=== PATIENT | male | born 1955 | race Caucasian/White ===

== ENCOUNTER 2017-05-19 12:23 | Inpatient (IN) ==
--- NOTE | 2017-05-18 17:02 | History and Physical ---
CHIEF COMPLAINT Left foot multi-toe osteomyelitis. HISTORY OF PRESENT ILLNESS Andrés is a 61-year-old gentleman who started having wound issues on his left foot when he was walking on hot pavement. He developed what appears to be a traumatic ulceration to the plantar aspect of the left foot. This has been treated in the wound clinic and unfortunately his symptoms have worsened and he started developing diabetic ulcerations in the third, fourth and fifth digits. Because he was unable to get an MRI because of a pacemaker, he did have a bone scan which is suggestive of osteomyelitis in the third, fourth and fifth toes. He states that his diabetes is well controlled. He has been on oral antibiotic per Dr. Brittany Parra. He has taken Levaquin. He denies pain in the foot due to neuropathy but he does have pain starting in his mid-calf where his sensation starts. PAST MEDICAL HISTORY 1. History of pacemaker. 2. History of myocardial infarction. 3. Hepatitis C. 4. Diabetes. PAST SURGICAL HISTORY 1. He has had ulnar nerve transposition. 2. Pacemaker placement. REVIEW OF SYSTEMS Negative for recent fever or chills, chest pain, shortness of breath, nausea, vomiting, diarrhea, constipation. PHYSICAL EXAMINATION GENERAL: He is alert and oriented, in no acute distress. He is here with his . LEFT LOWER EXTREMITY: Exam of his left lower extremity shows he has open ulcerations with bone exposed to both the fifth and the third digits. There is also swelling and erythema in the third, fourth and fifth toes. There is a large open wound to the plantar aspect of the distal foot which has beautiful granulation tissue present. He has no sensation to light touch distal to the calf. He has palpable dorsalis pedis pulse and otherwise his skin is intact without lesions. RADIOGRAPHS Radiographs are reviewed. Previous plain films as well as his bone scan report which does suggest osteomyelitis in the third, fourth and fifth digits. ASSESSMENT Left third, fourth and fifth toes osteomyelitis. PLAN I reviewed the diagnosis and treatment options with him. I did recommend an amputation of the third, fourth and fifth toes. I do not think they will be able to be saved given that he has open bone exposed. I am concerned about him healing the wound given the large plantar ulcer that he has present. I discussed possible closure of his incisions at the time of surgery or if there is concern at the time of surgery, to place a wound VAC instead. We will send the toes for pathology to get margins and he will be given antibiotics per Dr. Parra. Surgery will be planned for tomorrow. LUCIA
[2017-05-19] MEDS ORDERED: LIDOCAINE 1% (10mg/ml) 2mL INJ PF SDV ID ONE (12:43)
[2017-05-19] MEDS ORDERED: LR 1,000 ML IV SCH (12:45)
[2017-05-19 12:52] VITALS: BMI 22.4
--- NOTE | 2017-05-19 14:01 | Anesthesia Preoperative Report ---
Anesthesia Preoperative Record - Date and Time Date: 05/19/17 Preoperative Diagnosis: Amputation 3rd, 4th & 5th Toes infected toes Proposed Procedure: amputation of toes NPO Since Date: 05/18/17 NPO Since Time: 23:00 Allergies/Adverse Reactions: Allergies Allergy/AdvReac Type Severity Reaction Status Date / Time naproxen Allergy Mild RASH Verified 05/12/17 13:28 hydrocodone [From Lortab] AdvReac Severe Vomiting Verified 05/12/17 13:28 - Vital Signs Vital Signs: Temperature 98.8 F 05/19/17 12:51 Pulse Rate 101 H 05/19/17 12:51 Respiratory Rate 20 05/19/17 12:51 Blood Pressure 118/78 05/19/17 12:51 Pulse Oximetry 96 05/19/17 12:51 Height and Weight: Height 1.88 m Weight 79.4 kg Body Mass Index 22.4 - Medications Inpatient Medications: Current Medications Lactated Ringer's (Lactated Ringers) 1,000 mls @ 50 mls/hr IV .Q20H [facility] Home Medications: Home Medications Medication Instructions Recorded Confirmed Type ALPRAZolam [Alprazolam] 0.5 mg PO TID #0 07/16/15 05/19/17 History Buspirone HCl 15 mg PO BID #0 07/16/15 05/19/17 History Furosemide 40 mg PO DAILY #0 07/16/15 05/19/17 History Omeprazole 20 mg PO DAILY #0 07/16/15 05/19/17 History Potassium Chloride 10 meq PO HS #0 07/16/15 05/19/17 History Ramipril 5 mg PO HS #0 07/16/15 05/19/17 History Aspirin [Aspir 81] 81 mg PO DAILY #0 tab 07/17/15 05/19/17 History Eplerenone 25 mg PO HS #0 07/17/15 05/19/17 History Nitroglycerin 0.4 mg SL Q5M PRN #0 tab 07/17/15 05/19/17 History Tamsulosin HCl 0.4 mg PO HS #0 08/02/16 05/19/17 History Tramadol HCl 100 mg PO BID #0 08/02/16 05/19/17 History Digoxin 125 mcg PO DAILY 04/21/17 05/19/17 History Cholecalciferol (Vitamin D3) 1 cap PO DAILY 05/12/17 05/19/17 History [Vitamin D3] Gabapentin 300 mg PO TID 05/12/17 05/19/17 History levoFLOXacin [Levofloxacin] 750 mg PO DAILY 05/12/17 05/19/17 History Oxycodone HCl/Acetaminophen 2 tab PO TID PRN 05/19/17 05/19/17 History [Percocet 5-325 mg Tablet] - Medical History Cardiovascular: Reports: Arrhythmia (pacemaker ), Myocardial Infarction (1999, 1 stent , 25% EF, sees cardioligist every 2 yrs, Seen in November 2015, ), Other Gastrointestional: Reports: Hepatitis (C, treated for it ) Renal/Endocrine: Reports: Diabetes Mellitus Type 2 (bs at home 120's ) - Surgical History Cardiac Surgeries/Treatments: Reports: Cardiac Catheterization (STENT X 1), Internal Defibrillator, Pacemaker (2015, 3 leads ) GI Surgery/Treatments: Reports: Appendectomy Musculoskeletal Surgery/Tx: Reports: Other (laminectomy L5) Anesthesia Reactions: None Hx Family Anesthesia Reaction: No - Social History Smoking Status: Former smoker - Pertinent Findings Laboratory: CBC and BMP 05/19/17 13:05 05/19/17 13:05 BMP 05/19/17 13:05 Sodium 141 Potassium 4.9 Chloride 101 Carbon Dioxide 28 BUN 23.0 H Creatinine 1.2 Glucose 137 H Calcium 10.0 Liver Function 05/19/17 Range/Units 13:05 Total Bilirubin 1.10 (0.20-1.30) MG/DL AST 22 (17-59) U/L ALT 30 (21-72) U/L Alkaline Phosphatase 94 (38-126) U/L Albumin 4.6 (3.5-5.0) G/DL - Physical Exam Respiratory Exam: Present: lungs clear, bilateral breath sounds equal Cardiovascular Exam: Present: regular rate and rhythm, no murmur - Airway Assessment Mallampati Score: I TMD: 3 Fingerbreadths Neck Extension: good Teeth: upper dentures, lower dentures Overall Assessment: no airway concerns - ASA ASA Score: 3 - Plan Anesthesia: General TIVA, MAC Peripheral Nerve Block: Popliteal-Left - Discussion Discussion: Discussed risks/options/alternatives of anesthesia and questions answered. Patient consents. Nursing pain assessment noted. Attestation Statement: Prior to the delivery of any anesthetic medication, I examined the patient, developed the plan, obtained the patient's consent and discussed the risk and benefits of the procedure with the patient/guardian.
[2017-05-19] MEDS ORDERED: MIDAZOLAM 2mg/2ml INJECTION IVP ONE (14:07)
[2017-05-19] MEDS ORDERED: ROPIVACAINE 0.5% (5mg/ml) 30ml INJ ONE (14:25)
[2017-05-19] MEDS ORDERED: MIDAZOLAM 2mg/2ml INJECTION ONE ×2 (14:52→15:07)
[2017-05-19] MEDS ORDERED: FentaNYL 100 MCG/2 ML INJECTION ONE (14:54)
[2017-05-19] MEDS ORDERED: KETAMINE 500 MG/10 ML INJECTION ONE (14:55)
[2017-05-19] MEDS ORDERED: PROPOFOL 20 ML ONE (14:55)
[2017-05-19] MEDS ORDERED: LIDOCAINE 2% (100mg/5mL) PF 5ml vl ONE (14:55)
--- NOTE | 2017-05-19 15:00 | Anesthesia Procedure Note ---
Peripheral Nerve Blockade - Procedure Physician: Jaron Carballo MD Date: 05/19/17 Surgical Procedure: amputation toes left foot Discussion: Discussed risks/options/alternatives of anesthesia and questions answered. Patient consents. Nursing pain assessment noted. Block Start: 14:31 Block Stop: 14:34 Blocked Employed: [employer] Indication: Post-Operative Pain Approach: Left Side Confirmed Position: Supine Patient: Consent, Risks/Benefits Discussed, Informed, Post Block Act. Discussed IV Sedation: Yes Midazolam (mg): 2 Initial Vital Signs: Temperature 98.8 F 05/19/17 12:51 Temperature Source Oral 05/19/17 12:51 Pulse Rate 101 H 05/19/17 12:51 Respiratory Rate 20 05/19/17 12:51 Blood Pressure 118/78 05/19/17 12:51 Blood Pressure Mean 91 05/19/17 12:51 Blood Pressure Position Sitting 05/19/17 12:51 Pulse Oximetry 96 05/19/17 12:51 Oxygen Delivery Method 05/19/17 12:51 Post Vital Signs: Temperature 98.8 F 05/19/17 12:51 Pulse Rate 92 05/19/17 14:40 Respiratory Rate 13 05/19/17 14:40 Blood Pressure 115/74 05/19/17 14:40 Pulse Oximetry 97 05/19/17 14:40 Initial Pain Pain Score: 0 Post Block Pain Score: 0 Prep: Chlorhexadine/ETOH Ultrasound Used?: Yes - Injectate Ropivacaine (%): 0.5 Ropivacaine (mL): 20 Was Epi 1:200,000 Used?: No Injection: Injection made incrementally with constant monitoring and aspiration every ml
[2017-05-19] MEDS ORDERED: SENNA + DOCUSATE TABLET PO PRN (16:49)
[2017-05-19] MEDS ORDERED: ONDANSETRON 4 MG/2 ML INJECTION IVP PRN (16:49)
[2017-05-19] MEDS ORDERED: NITROGLYCERIN 0.4 MG SUBLINGUAL TABLET SL PRN (16:49)
--- NOTE | 2017-05-19 16:51 | Anesthesia Postoperative Note ---
- Date and Time Date: 05/19/17 Time: 16:18 - Status Patient Participated in Evaluation: Patient Participated in Person Vital Signs: Temperature 97.2 F 05/19/17 15:43 Pulse Rate 96 05/19/17 16:40 Respiratory Rate 12 05/19/17 16:40 Blood Pressure 110/62 05/19/17 16:40 Pulse Oximetry 97 05/19/17 16:40 Respiratory Function: Airway Patent Cardiovascular Function: Regular Pulse EKG Rhythm: Normal Sinus Rhythm (PACED) Mental Status: Alert and Oriented Pain Intensity: 2 Hydration: IV Infusing Complications During Recover: None Apparent - Follow-Up Instructions Instructions: Per Surgeon
[2017-05-19] MEDS: NS 1,000 ML IV SCH (17:41)
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
--- NOTE | 2017-05-19 18:41 | Pharmacy Consult-Antibiotics ---
Pharmacy Consult-Vancomycin - Laboratory Information WBC 6.2 T/MM3 (4.5-11.0) 05/19/17 13:05 BUN 23.0 MG/DL (9-20) H 05/19/17 13:05 Creatinine 1.2 MG/DL (0.8-1.5) 05/19/17 13:05 - Consult Information VANCOMYCIN CONSULT: Dx: WOUND INFECTION Current Renal Fx: SCr = 1.2mg/dl. Will give Vancomycin 1,000mg IV q12hrs after a loading dose of 2 gram ivpb. Will continue to monitor and adjust regimen to maintain therapeutic levels. Thank you.
[2017-05-19] MEDS ORDERED: BISACODYL 10 MG SUPPOSITORY RECTALLY PRN (19:07)
[2017-05-19] MEDS: PIPERACILLIN/TAZOBACTAM 3.375 GM in NS 100 ML IV SCH (20:16)
[2017-05-19] MEDS: TAMSULOSIN 0.4 MG CAPSULE PO SCH (21:43)
[2017-05-19] MEDS: BUSPIRONE 15 MG TABLET PO SCH (21:43)
[2017-05-19] MEDS: RAMIPRIL 5 MG CAPSULE PO SCH (21:43)
[2017-05-19] MEDS: EPLERENONE 25 MG TABLET PO SCH (21:43)
[2017-05-19] MEDS: GABAPENTIN 300 MG CAPSULE PO SCH (21:44)
[2017-05-19] MEDS: ALPRAZolam 0.5 MG TABLET PO SCH (21:44)
[2017-05-19] MEDS: SENNA + DOCUSATE TABLET PO SCH (21:44)
[2017-05-20] MEDS: PIPERACILLIN/TAZOBACTAM 3.375 GM in NS 100 ML IV SCH ×4 (02:22→21:52)
[2017-05-20] MEDS: OXYCODONE/APAP 7.5 MG/325 MG TABLET PO PRN ×4 (02:26→18:02)
[2017-05-20] MEDS: OMEPRAZOLE 20 MG CAPSULE PO SCH (05:47)
[2017-05-20] MEDS: NS 1,000 ML IV SCH ×3 (06:51→15:33)
[2017-05-20] MEDS: ALPRAZolam 0.5 MG TABLET PO SCH ×3 (08:55→21:51)
[2017-05-20] MEDS: ASPIRIN *EC* 81 MG TABLET PO SCH (08:55)
[2017-05-20] MEDS: DIGOXIN 125 MCG TABLET PO SCH (08:55)
[2017-05-20] MEDS: SENNA + DOCUSATE TABLET PO SCH ×2 (08:56→21:50)
[2017-05-20] MEDS: BUSPIRONE 15 MG TABLET PO SCH ×2 (08:56→21:49)
[2017-05-20] MEDS: GABAPENTIN 300 MG CAPSULE PO SCH ×3 (08:56→21:50)
[2017-05-20] MEDS: POLYETHYL GLYCOL 3350 17gm PACKET PO SCH (08:57)
[2017-05-20] MEDS: FUROSEMIDE 40 MG TABLET PO SCH (08:57)
--- NOTE | 2017-05-20 13:07 | Progress Note ---
Subjective: F/U: Ischemic cardiomyopathy, Type II DM Doing well today. No f/c. Not having pain/discomfort to amputation site (IV site in his left wrist bothering him more). Breathing well-not feeling SOA or congested. No cough. No chest pressure or pain. Not lightheaded or dizzy with positional changes or when up. Denies ab pain, nausea, or bloating. Passing flatus and stool. Urinating well. Sugars showing good control. Objective Vital signs: Temperature 98.5 F 05/20/17 12:00 Pulse Rate 80 05/20/17 12:00 Respiratory Rate 18 05/20/17 12:00 Blood Pressure 107/66 05/20/17 12:00 Pulse Oximetry 98 05/20/17 12:00 Rhythm: Normal Sinus Rhythm (PACED) Height/Weight/BMI: Height 1.88 m Weight 80.6 kg Body Mass Index 22.4 - Constitutional Present: well nourished, well developed, cooperative - Routine HEENT Exam Head: Present: normocephalic, atraumatic Eye: Present: EOMI, PERRL ENT: Present: mucous membranes moist - Routine Respiratory Exam Present: CTA bilaterally. Absent: respiratory distress, rhonchi, wheezes, crackles - Routine Cardiovascular Exam Present: RRR, no murmur - Routine Abdominal Exam Present: soft, normoactive bowel sounds, non distended, non tender. Absent: rebound, guarding - Routine Extremities Exam Present: no edema, pulses intact. Absent: cyanosis, clubbing Comments: SCD in place on LE - Routine Musculoskeletal Exam Musculoskeletal: Present: no clubbing or cyanosis, normal strength - Routine Skin Exam Present: warm, normal turgor, wounds (Left foot wound wrapped and dry) - Routine Neurological Exam Present: alert, oriented X3, CN II-XII intact, vision grossly intact, hearing grossly intact. Absent: motor deficit - Routine Psychiatric Exam Present: normal affect, normal thought process, cooperative, good insight, good judgment. Absent: anxious, agitated Results - Labs CBC & Chem 7: 05/20/17 04:16 05/20/17 04:16 Microbiology Results: Microbiology 05/19/17 15:30 Amputation Site Gram Stain - Final 05/19/17 15:30 Amputation Site Surgical Culture - Preliminary Early growth Assessment and Plan (1) Osteomyelitis of left foot Current visit: Yes Status: Acute DVT Prophylaxis: SCD's GI Prophylaxis: Protonix Assessment and Plan: Assessment Osteomyelitis left foot 05/19/17: amputation of left 3rd, 4th, and 5th toes by Dr. Kait PIERCE, h/o [place] in 1999 Ischemic cardiomyopathy, EF 25% - used to be on Coumadin from 4761-0076. +AICD. 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 Wound culture and pathology pending. Will decrease IVF to 40cc/hr to help keep vein open but not overload patient. Restart his home tramadol 100mg BID - takes to help pain in his hands -- NOT on home med list. Monitor sugars - currently showing good control. Continue CV medications. BP stable. No acute CV problems. Continue post operative care and support. Clinically recovering well. Time spent with patient care 25 minutes. Sepsis Assessment - Evaluation Sepsis screening result: No Definite Risk Hospital Course Summary Disclaimer: The visit summary below is not to be considered part of the above Progress Note. Hospital Course: 05/19/17: Hospitalist consult Assessment Osteomyelitis left foot; s/p left 3rd, 4th, and 5th toes amputation on 05/19/[address] Kait PIERCE, h/o [place] in 1999 Ischemic cardiomyopathy, EF 25% - used to be on Coumadin from 3705-0971. +AICD. 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 Give IV Ativan now - concern that he is having benzo withdrawal with diaphoresis and tremors. Postop care per Dr. Carballo. Discussed with Derian - he will order PT/OT consults. Monitor blood sugars; continue DM meds. Watch for fluid overload - he denies ever having CHF exacerbation in the past. 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 DC IVF as soon as he is taking in oral well. He is on digoxin but denies hx of an arrhythmia. Consult CM - he is interested in naming his as DPOA and writing a living will. Code: Full code but he does not want to be on ventilator for prolonged period. Also, he lives in a 5th wheel with his , and his is planning on having a knee replacement on 05/24/17, so we will have to determine best discharge plans. 05/20/17 Continue Vancomycin and Zosyn as per ID recommendations. Wound culture and pathology pending. Will decrease IVF to 40cc/hr to help keep vein open but not overload patient. Restart his home tramadol 100mg BID - takes to help pain in his hands -- NOT on home med list. Monitor sugars - currently showing good control. Continue CV medications. BP stable. No acute CV problems. Continue post operative care and support. Clinically recovering well.
--- NOTE | 2017-05-20 13:31 | Orthopedic Progress Note ---
Date: Subjective/Severity of Illness: Andrés is doing great. Pain in the foot is controlled. He is complaining of pain in the IV site when he gets Vanco / Zosyn. They are going to change the rate and see if that lessens his pain. May need to change the IV site. No other concerns. Wound team changed dressing to the foot this AM. Orthopedic Objective PO Vital signs: Temperature 98.5 F 05/20/17 12:00 Pulse Rate 80 05/20/17 12:00 Respiratory Rate 18 05/20/17 12:00 Blood Pressure 107/66 05/20/17 12:00 Pulse Oximetry 98 05/20/17 12:00 Height and Weight: Height 6 ft 2 in Weight 177 lb 11.081 oz Body Mass Index 22.4 - Constitutional General Appearance: Present: alert, no acute distress, other (Sitting up eating lunch.) - Respiratory Exam Present: non-labored - Surgical Site Incision: dressing intact, no drainage (Changed by Wound Team this AM.) - Integumentary Exam Present: pink, warm, dry - Neurological Exam Present: no deficits - Psychiatric Exam Present: alert, normal affect - Labs Result Diagrams: 05/20/17 04:16 05/20/17 04:16 Abnormal lab results 05/20/17 Range/Units 04:16 RBC 4.28 L (4.50-5.90) M/MM3 Hgb 12.6 L (13.5-17.5) GM/DL Hct 37.3 L (41-53) % Neut % (Auto) 71.2 H (33-66) % Lymph % (Auto) 19.7 L (23-45) % H & H 05/19/17 05/20/17 Range/Units 13:05 04:16 Hgb 13.9 12.6 L (13.5-17.5) GM/DL Hct 40.8 L 37.3 L (41-53) % Orthopedic Assessment and Plan (1) Osteomyelitis of left foot Status: Acute Assessment and Plan: Cont wound checks by the wound team. Elevate the leg to control swelling. Continue IV Vanco and Zosyn per Dr Parra recommendations. Change IV site if needed. It is at the radial bend of his wrist and is uncomfortable for him. Await culture reports and path report before determining if he needs IV or PO antibiotics. - Anticoagulation Therapy Anticoagulation: Resume home anticoagulant (Aspirin 81mg daily.) Hospital Course Summary Disclaimer: The visit summary below is not to be considered part of the above Progress Note. Hospital Course: 05/19/17: Hospitalist consult Assessment Osteomyelitis left foot; s/p left 3rd, 4th, and 5th toes amputation on 05/19/[address] Carballo CAD, h/o [place] in 1999 Ischemic cardiomyopathy, EF 25% - used to be on Coumadin from [id number]. +AICD. 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 Give IV Ativan now - concern that he is having benzo withdrawal with diaphoresis and tremors. Postop care per Dr. Carballo. Discussed with Derian - he will order PT/OT consults. Monitor blood sugars; continue DM meds. Watch for fluid overload - he denies ever having CHF exacerbation in the past. His roller leveler is at [facility]. DC IVF as soon as he is taking in oral well. He is on digoxin but denies hx of an arrhythmia. Consult CM - he is interested in naming his as DPOA and writing a living will. Code: Full code but he does not want to be on ventilator for prolonged period. Also, he lives in a 5th wheel with his , and his is planning on having a knee replacement on 05/24/17, so we will have to determine best discharge plans. 05/20/17 Continue Vancomycin and Zosyn as per ID recommendations. Wound culture and pathology pending. Will decrease IVF to 40cc/hr to help keep vein open but not overload patient. Restart his home tramadol 100mg BID - takes to help pain in his hands -- NOT on home med list. Monitor sugars - currently showing good control. Continue CV medications. BP stable. No acute CV problems. Continue post operative care and support. Clinically recovering well.
[2017-05-20] MEDS ORDERED: DiphenhydrAMINE 50 MG/ML INJECTION IVP PRN (19:16)
[2017-05-20] MEDS: RAMIPRIL 5 MG CAPSULE PO SCH (21:48)
[2017-05-20] MEDS: TAMSULOSIN 0.4 MG CAPSULE PO SCH (21:49)
[2017-05-20] MEDS: EPLERENONE 25 MG TABLET PO SCH (21:50)
[2017-05-20] MEDS: TRAMADOL 50 MG TABLET PO SCH (21:51)
[2017-05-21] MEDS: PIPERACILLIN/TAZOBACTAM 3.375 GM in NS 100 ML IV SCH ×4 (03:17→21:17)
[2017-05-21] MEDS: OXYCODONE/APAP 7.5 MG/325 MG TABLET PO PRN ×5 (04:20→21:09)
[2017-05-21] MEDS: OMEPRAZOLE 20 MG CAPSULE PO SCH (05:30)
--- NOTE | 2017-05-21 08:39 | Pharmacy Consult-Antibiotics ---
Pharmacy Consult-Vancomycin - Laboratory Information WBC 8.1 T/MM3 (4.5-11.0) 05/21/17 04:32 BUN 16.0 MG/DL (9-20) 05/21/17 04:32 Creatinine 1.0 MG/DL (0.8-1.5) 05/21/17 04:32 Vancomycin Trough 12.61 UG/ML (15-20) L 05/21/17 08:06 DAY 3 OF VANCOMYCIN THERAPY: Trough = 12.61 mcg/ml (Target range = 15 - 20) Renal fx is stable. Will increase regimen to Vancomycin 1500mg IV q12hrs. This gives calculated peak/trough of 46/17 mcg/ml respectively. Thank you
[2017-05-21] MEDS: DIGOXIN 125 MCG TABLET PO SCH (08:55)
[2017-05-21] MEDS: FUROSEMIDE 40 MG TABLET PO SCH (08:56)
[2017-05-21] MEDS: TRAMADOL 50 MG TABLET PO SCH ×2 (08:56→21:08)
[2017-05-21] MEDS: ASPIRIN *EC* 81 MG TABLET PO SCH (08:56)
[2017-05-21] MEDS: BUSPIRONE 15 MG TABLET PO SCH ×2 (08:56→21:08)
[2017-05-21] MEDS: ALPRAZolam 0.5 MG TABLET PO SCH ×3 (08:57→22:05)
[2017-05-21] MEDS: GABAPENTIN 300 MG CAPSULE PO SCH ×3 (08:57→21:08)
[2017-05-21] MEDS: POLYETHYL GLYCOL 3350 17gm PACKET PO SCH (08:58)
--- NOTE | 2017-05-21 09:19 | Orthopedic Progress Note ---
Date: Subjective/Severity of Illness: Andrés is doing well. Pain levels are markedly improved. The dressing came off overnight and nursing reapplied it this AM. He has remained afebrile. WBC 8.1 Orthopedic Objective PO Vital signs: Temperature 96.0 F L 05/21/17 07:52 Pulse Rate 74 05/21/17 08:55 Respiratory Rate 16 05/21/17 07:52 Blood Pressure 104/66 05/21/17 07:52 Pulse Oximetry 97 05/21/17 07:52 Height and Weight: Height 6 ft 2 in Weight 177 lb 4.026 oz Body Mass Index 22.4 - Constitutional General Appearance: Present: alert, no acute distress - Respiratory Exam Present: non-labored - Cardiovascular Exam Capillary Refill: < 2-3 Seconds - Extremities Exam Extremities: Absent: calf tenderness - Surgical Site Incision: dressing intact, no drainage, other (New dressing applied by nursing this AM) - Integumentary Exam Present: pink, warm, dry - Neurological Exam Present: no deficits - Psychiatric Exam Present: alert, normal affect - Labs Result Diagrams: 05/21/17 04:32 05/21/17 04:32 Abnormal lab results 05/21/17 05/21/17 05/21/17 Range/Units 04:32 04:32 08:06 RBC 4.15 L (4.50-5.90) M/MM3 Hgb 12.4 L (13.5-17.5) GM/DL Hct 36.4 L (41-53) % Chloride 108 H (98-107) MEQ/L Vancomycin Trough 12.61 L (15-20) UG/ML H & H 05/19/17 05/20/17 05/21/17 Range/Units 13:05 04:16 04:32 Hgb 13.9 12.6 L 12.4 L (13.5-17.5) GM/DL Hct 40.8 L 37.3 L 36.4 L (41-53) % Orthopedic Assessment and Plan (1) Osteomyelitis of left foot Status: Acute Assessment and Plan: New dressing applied this AM by nursing. I will check it tomorrow. Elevate the leg to control swelling. Continue IV Vanco and Zosyn per Dr Parra recommendations. Sensitivity reports still pending. Pt reports decreased pain and is afeb. Cont to monitor. - Anticoagulation Therapy Anticoagulation: Resume home anticoagulant (Aspirin 81mg daily.) Hospital Course Summary Disclaimer: The visit summary below is not to be considered part of the above Progress Note. Hospital Course: 05/19/17: Hospitalist consult Assessment Osteomyelitis left foot; s/p left 3rd, 4th, and 5th toes amputation on 05/19/[address] Carballo CAD, h/o [place] in 1999 Ischemic cardiomyopathy, EF 25% - used to be on Coumadin from 9539-2012. +AICD. 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 Give IV Ativan now - concern that he is having benzo withdrawal with diaphoresis and tremors. Postop care per Dr. Carballo. Discussed with Derian - he will order PT/OT consults. Monitor blood sugars; continue DM meds. Watch for fluid overload - he denies ever having CHF exacerbation in the past. 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 DC IVF as soon as he is taking in oral well. He is on digoxin but denies hx of an arrhythmia. Consult CM - he is interested in naming his as DPOA and writing a living will. Code: Full code but he does not want to be on ventilator for prolonged period. Also, he lives in a 5th wheel with his , and his is planning on having a knee replacement on 05/24/17, so we will have to determine best discharge plans. 05/20/17 Continue Vancomycin and Zosyn as per ID recommendations. Wound culture and pathology pending. Will decrease IVF to 40cc/hr to help keep vein open but not overload patient. Restart his home tramadol 100mg BID - takes to help pain in his hands -- NOT on home med list. Monitor sugars - currently showing good control. Continue CV medications. BP stable. No acute CV problems. Continue post operative care and support. Clinically recovering well.
[2017-05-21] MEDS: SENNA + DOCUSATE TABLET PO SCH ×2 (09:47→21:08)
--- NOTE | 2017-05-21 10:50 | Progress Note ---
<Ansley Kumar V - Last Filed: 05/21/17 10:45> Subjective: Andrés is seen today in follow up. He is comfortably resting in bed without complaints. Left Foot dressing was changed this morning by nursing staff. He reports that overall the pain in his leg continues to improve. He does not have pain or much sensation in his foot from neuropathy. Patient remains afebrile, vital signs normal, noted to be mildly hypotensive this morning, however, in reviewing past trend. She tends to run in the 90 systolic at times. Objective Vital signs: Temperature 96.0 F L 05/21/17 07:52 Pulse Rate 74 05/21/17 08:55 Respiratory Rate 16 05/21/17 07:52 Blood Pressure 104/66 05/21/17 07:52 Pulse Oximetry 97 05/21/17 07:52 Height/Weight/BMI: Height 1.88 m Weight 80.4 kg Body Mass Index 22.4 - Constitutional Present: no acute distress, well nourished, well developed - Routine HEENT Exam Eye: Present: EOMI ENT: Present: mucous membranes moist, dentition normal - Routine Respiratory Exam Present: CTA bilaterally. Absent: wheezes - Routine Cardiovascular Exam Present: RRR, S1, S2. Absent: murmur - Routine Abdominal Exam Present: soft, normoactive bowel sounds, non distended. Absent: tenderness - Routine Extremities Exam Present: pulses intact, normal capillary refill Comments: Left foot dressing intact - Routine Back/Spine/Pelvis Exam Back/Spine: Present: full ROM - Routine Skin Exam Present: intact, dry, warm - Routine Neurological Exam Present: alert, oriented X3, moving all extremities, vision grossly intact, hearing grossly intact - Routine Lymphatic Exam Lymphatic: Absent: adenopathy - Routine Psychiatric Exam Present: normal affect, normal thought process Results - Labs CBC & Chem 7: 05/21/17 04:32 05/21/17 04:32 Microbiology Results: Microbiology 05/19/17 15:30 Amputation Site Gram Stain - Final 05/19/17 15:30 Amputation Site Surgical Culture - Preliminary Coag negative Staphylococcus Corynebacterium species Assessment and Plan (1) Osteomyelitis of left foot Current visit: Yes Status: Acute Assessment and Plan: Assessment Osteomyelitis left foot - 05/19/17: amputation of left 3rd, 4th, and 5th toes by Dr. Carballo CAD, h/o [place] in 1999 Ischemic cardiomyopathy, EF 25% - used to be on Coumadin from 8289-9666. +AICD. 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 Wound cultures and sensitivity pending. Continue to monitor blood sugars, overall, they have been well controlled, fasting sugar this morning 94 Percocet and Ultram as needed for pain control Senna plus, MiraLAX scheduled as well as as needed, milk of magnesia and Dulcolax for chronic constipation Morning labs reviewed, all stable Sepsis Assessment - Evaluation Sepsis screening result: No Definite Risk Hospital Course Summary Disclaimer: The visit summary below is not to be considered part of the above Progress Note. Hospital Course: 05/19/17: Hospitalist consult Assessment Osteomyelitis left foot; s/p left 3rd, 4th, and 5th toes amputation on 05/19/[address] Carballo CAD, h/o [place] in 1999 Ischemic cardiomyopathy, EF 25% - used to be on Coumadin from 9352-8666. +AICD. 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 Give IV Ativan now - concern that he is having benzo withdrawal with diaphoresis and tremors. Postop care per Dr. Carballo. Discussed with Derian - he will order PT/OT consults. Monitor blood sugars; continue DM meds. Watch for fluid overload - he denies ever having CHF exacerbation in the past. His pig sticker is at [facility]. DC IVF as soon as he is taking in oral well. He is on digoxin but denies hx of an arrhythmia. Consult CM - he is interested in naming his as DPOA and writing a living will. Code: Full code but he does not want to be on ventilator for prolonged period. Also, he lives in a 5th wheel with his , and his is planning on having a knee replacement on 05/24/17, so we will have to determine best discharge plans. 05/20/17 Continue Vancomycin and Zosyn as per ID recommendations. Wound culture and pathology pending. Will decrease IVF to 40cc/hr to help keep vein open but not overload patient. Restart his home tramadol 100mg BID - takes to help pain in his hands -- NOT on home med list. Monitor sugars - currently showing good control. Continue CV medications. BP stable. No acute CV problems. Continue post operative care and support. Clinically recovering well. 05/21/17- Stable doing well. Continue on current treatment plan. Awaiting wound culture and sensitivity results. <Tejal Wells - Last Filed: 05/21/17 16:49> Objective Vital signs: Temperature 96.2 F L 05/21/17 15:59 Pulse Rate 75 05/21/17 15:59 Respiratory Rate 16 05/21/17 15:59 Blood Pressure 105/68 05/21/17 15:59 Pulse Oximetry 97 05/21/17 15:59 Height/Weight/BMI: Height 1.88 m Weight 80.4 kg Body Mass Index 22.4 Results - Labs CBC & Chem 7: 05/21/17 04:32 05/21/17 04:32 Microbiology Results: Microbiology 05/19/17 15:30 Amputation Site Gram Stain - Final 05/19/17 15:30 Amputation Site Surgical Culture - Preliminary Coag negative Staphylococcus Corynebacterium species Assessment and Plan (1) Osteomyelitis of left foot Current visit: Yes Status: Acute Assessment and Plan: I have independently evaluated and examined this patient. I reviewed the chart, the patient's history, and the CIND[employer] PIT WORKER/PA's documented findings as above. We discussed and formulated the assessment and plan as above with additions as below: Mr. Schofield reports having no concerns today other than minor discomfort in his foot. Pathology is pending. Patient is alert and cooperative; respirations are nonlabored with good airflow and clear breath sounds. No peripheral edema is noted although there are several small scabs along the right brownlee. Vancomycin trough 12.61-dose modified per pharmacy Continue current regimen with vancomycin/Zosyn pending pathology to determine if surgical margins free of infection. Excellent control of diabetes, glucoses have ranged 97-169 in the past 24 hours. Hospital Course Summary Disclaimer: The visit summary below is not to be considered part of the above Progress Note.
[2017-05-21] MEDS: NS 1,000 ML IV SCH (18:26)
[2017-05-21] MEDS: TAMSULOSIN 0.4 MG CAPSULE PO SCH (21:08)
[2017-05-21] MEDS: EPLERENONE 25 MG TABLET PO SCH (21:08)
[2017-05-21] MEDS: RAMIPRIL 5 MG CAPSULE PO SCH (22:09)
[2017-05-22] MEDS: OXYCODONE/APAP 7.5 MG/325 MG TABLET PO PRN ×3 (03:21→17:24)
[2017-05-22] MEDS: PIPERACILLIN/TAZOBACTAM 3.375 GM in NS 100 ML IV SCH ×4 (03:26→21:47)
[2017-05-22] MEDS: OMEPRAZOLE 20 MG CAPSULE PO SCH (06:16)
[2017-05-22] MEDS: BUSPIRONE 15 MG TABLET PO SCH ×2 (08:55→21:47)
[2017-05-22] MEDS: DIGOXIN 125 MCG TABLET PO SCH (08:55)
[2017-05-22] MEDS: ASPIRIN *EC* 81 MG TABLET PO SCH (08:55)
[2017-05-22] MEDS: FUROSEMIDE 40 MG TABLET PO SCH (08:56)
[2017-05-22] MEDS: SENNA + DOCUSATE TABLET PO SCH ×2 (08:57→21:47)
[2017-05-22] MEDS: GABAPENTIN 300 MG CAPSULE PO SCH ×3 (08:57→21:47)
[2017-05-22] MEDS: ALPRAZolam 0.5 MG TABLET PO SCH ×3 (09:02→21:46)
[2017-05-22] MEDS: TRAMADOL 50 MG TABLET PO SCH ×2 (09:08→21:46)
[2017-05-22] MEDS: POLYETHYL GLYCOL 3350 17gm PACKET PO SCH (09:09)
--- NOTE | 2017-05-22 10:39 | Progress Note ---
<Lorena Borden - Last Filed: 05/22/17 10:36> Subjective: Mr. Schofield is seen today in follow up. He reports that he is feeling fairly well. Is having quite a lot of pain in IV site with Vanco infusion. He is taking pain medications prior to infusion. Is not having any redness or warmth. No pain in foot. No other acute concerns today. His is scheduled to have elective surgery early next week at this hospital as well. Objective Vital signs: Temperature 97.1 F 05/22/17 03:34 Pulse Rate 90 05/22/17 08:55 Respiratory Rate 16 05/22/17 03:34 Blood Pressure 101/67 05/22/17 03:34 Pulse Oximetry 95 05/22/17 03:34 Rhythm: Normal Sinus Rhythm (PACED) Height/Weight/BMI: Height 1.88 m Weight 81.5 kg Body Mass Index 22.4 - Constitutional Present: no acute distress, well nourished, well developed, cooperative - Routine HEENT Exam Head: Present: normocephalic, atraumatic Eye: Present: EOMI, PERRL, normal accommodation ENT: Present: mucous membranes moist - Routine Respiratory Exam Present: CTA bilaterally. Absent: rhonchi, wheezes, crackles - Routine Cardiovascular Exam Present: RRR, S1, S2 - Routine Abdominal Exam Present: soft, normoactive bowel sounds, non distended, non tender - Routine Extremities Exam Present: no edema, non tender Comments: Left foot with dressing in place. - Routine Back/Spine/Pelvis Exam Back/Spine: Present: full ROM - Routine Musculoskeletal Exam Musculoskeletal: Present: no clubbing or cyanosis, moving extremities well - Routine Skin Exam Present: intact, dry, warm - Routine Neurological Exam Present: alert, oriented X3 - Routine Psychiatric Exam Present: normal affect, cooperative, good insight, good judgment - Additional findings Additional findings: IV site left wrist- 18g. Site is intact, not warm or red. Results - Labs CBC & Chem 7: 05/21/17 04:32 05/21/17 04:32 Microbiology Results: Microbiology 05/19/17 15:30 Amputation Site Gram Stain - Final 05/19/17 15:30 Amputation Site Surgical Culture - Final Coag negative Staphylococcus Corynebacterium species Assessment and Plan (1) Osteomyelitis of left foot Current visit: Yes Status: Acute DVT Prophylaxis: SCD's GI Prophylaxis: other (PPI) Resuscitation Status: Full Code Assessment and Plan: Assessment Osteomyelitis left foot; s/p left 3rd, 4th, and 5th toes amputation on 05/19/[address] Carballo *04/22/17 cx- Enterobacter *05/19/17 cx- Corynebacterium/Coag neg. Staph. *Pathology pending. CAD, h/o [place] in 1999 Ischemic cardiomyopathy, EF 25% - used to be on Coumadin from 9106-5816. +AICD. 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 Continue antibiotics- pathology pending. Dr. Parra to help determine adjunct faculty for medical terminology antibiotic need. Change IV site out given pain with infusion. He may need Midline or PICC, but prefers to wait until adjunct faculty for medical terminology plan of care is determined. Continue supportive medications for ischemic CM/HF. His CV doc is at [facility]. BG is well controlled, A1c 5.5. Not requiring medications for BG control. Continue remainder of supportive meds. Follow labs closely. Sepsis Assessment - Evaluation Sepsis screening result: No Definite Risk Hospital Course Summary Disclaimer: The visit summary below is not to be considered part of the above Progress Note. Hospital Course: 05/19/17: Hospitalist consult Assessment Osteomyelitis left foot; s/p left 3rd, 4th, and 5th toes amputation on 05/19/[address] Carballo CAD, h/o [place] in 1999 Ischemic cardiomyopathy, EF 25% - used to be on Coumadin from 8050-6161. +AICD. 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 Give IV Ativan now - concern that he is having benzo withdrawal with diaphoresis and tremors. Postop care per Dr. Carballo. Discussed with Derian - he will order PT/OT consults. Monitor blood sugars; continue DM meds. Watch for fluid overload - he denies ever having CHF exacerbation in the past. 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 DC IVF as soon as he is taking in oral well. He is on digoxin but denies hx of an arrhythmia. Consult CM - he is interested in naming his as DPOA and writing a living will. Code: Full code but he does not want to be on ventilator for prolonged period. Also, he lives in a 5th wheel with his , and his is planning on having a knee replacement on 05/24/17, so we will have to determine best discharge plans. 05/20/17 Continue Vancomycin and Zosyn as per ID recommendations. Wound culture and pathology pending. Will decrease IVF to 40cc/hr to help keep vein open but not overload patient. Restart his home tramadol 100mg BID - takes to help pain in his hands -- NOT on home med list. Monitor sugars - currently showing good control. Continue CV medications. BP stable. No acute CV problems. Continue post operative care and support. Clinically recovering well. 05/21/17- Stable doing well. Continue on current treatment plan. Awaiting wound culture and sensitivity results. 05/22/17 10:50 05/22/17 D/W pt and at length. Continue antibiotics- pathology pending. Dr. Parra to help determine adjunct faculty for medical terminology antibiotic need. Change IV site out given pain with infusion. He may need Midline or PICC, but prefers to wait until group home plan of care is determined. Continue supportive medications for ischemic CM/HF. His CV doc is at [facility]. BG is well controlled, A1c 5.5. Not requiring medications for BG control. Continue remainder of supportive meds. Follow labs closely. <Tejal Wells - Last Filed: 05/22/17 14:35> Objective Vital signs: Temperature 97.7 F 05/22/17 11:55 Pulse Rate 72 05/22/17 11:55 Respiratory Rate 16 05/22/17 11:55 Blood Pressure 105/67 05/22/17 11:55 Pulse Oximetry 98 05/22/17 11:55 Height/Weight/BMI: Height 1.88 m Weight 81.5 kg Body Mass Index 22.4 Results - Labs CBC & Chem 7: 05/21/17 04:32 05/21/17 04:32 Microbiology Results: Microbiology 05/19/17 15:30 Amputation Site Gram Stain - Final 05/19/17 15:30 Amputation Site Surgical Culture - Final Coag negative Staphylococcus Corynebacterium species Assessment and Plan (1) Osteomyelitis of left foot Current visit: Yes Status: Acute Assessment and Plan: I have independently evaluated and examined this patient. I reviewed the chart, the patient's history, and the SALES OPERATIONS LEAD/PA's documented findings as above. We discussed and formulated the assessment and plan as above with additions as below: Doing well, no concerns at this time. Reports been off all medications for diabetes since treatment for hep C with [facility]. Denies dyspnea or nausea, adequate pain control. NAD, alert, respirations nonlabored with clear breath sounds Regular cardiac rhythm. Blood sugars entirely normal-discontinue Accu-Cheks Check CRP with a.m. labs. Discussed with nursing. Hospital Course Summary Disclaimer: The visit summary below is not to be considered part of the above Progress Note. Addendum entered and electronically signed by Lorena Borden APRN 05/22/17 11:43 : I was notified by RN that pt. refused IV site change that was recommended. He was notified that he is at high risk for thrombophlebitis and potential nerve damage if he continues to have Vanco infusions in a site that is painful. He already has a hx of peripheral arm neuropathy. Also, it is recommended that he should have a smaller IV cath in a larger vein not likely to be bent (current site is 18g in wrist). I had d/w pt for at least 10 minutes prior to this order. I have asked RN to document refusal of IV site change, patient was able to verbalize to me that he understood the risks of continuing infusion at that site.
--- NOTE | 2017-05-22 10:59 | Orthopedic Progress Note ---
Date: Subjective/Severity of Illness: Doing well. No pain at the surgical site. Still has pain with the IV antibiotics but it is tolerable with PO Percocet before infusion. Orthopedic Objective PO Vital signs: Temperature 97.1 F 05/22/17 03:34 Pulse Rate 90 05/22/17 08:55 Respiratory Rate 16 05/22/17 03:34 Blood Pressure 101/67 05/22/17 03:34 Pulse Oximetry 95 05/22/17 03:34 Height and Weight: Height 6 ft 2 in Weight 179 lb 10.828 oz Body Mass Index 22.4 - Constitutional General Appearance: Present: alert, no acute distress - Respiratory Exam Present: non-labored - Surgical Site Incision: dressing intact, no drainage, other (New dressing applied this AM.) - Integumentary Exam Present: pink, warm, dry, other (Surgical wound looks good. No drainage or erythema to suggest infection. New dressing applied.) - Neurological Exam Present: no deficits - Psychiatric Exam Present: alert, normal affect - Labs Result Diagrams: 05/21/17 04:32 05/21/17 04:32 H & H 05/19/17 05/20/17 05/21/17 Range/Units 13:05 04:16 04:32 Hgb 13.9 12.6 L 12.4 L (13.5-17.5) GM/DL Hct 40.8 L 37.3 L 36.4 L (41-53) % Orthopedic Assessment and Plan (1) Osteomyelitis of left foot Status: Acute Assessment and Plan: New dressing applied this AM. Surgical wound looking good. Elevate the leg to control swelling. Continue IV Vanco and Zosyn per Dr Parra recommendations. Sensitivity reports still pending. - Anticoagulation Therapy Anticoagulation: Resume home anticoagulant (Aspirin 81mg daily.) Hospital Course Summary Disclaimer: The visit summary below is not to be considered part of the above Progress Note. Hospital Course: 05/19/17: Hospitalist consult Assessment Osteomyelitis left foot; s/p left 3rd, 4th, and 5th toes amputation on 05/19/[address] Carballo CAD, h/o [place] in 1999 Ischemic cardiomyopathy, EF 25% - used to be on Coumadin from [id number]. +AICD. 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 Give IV Ativan now - concern that he is having benzo withdrawal with diaphoresis and tremors. Postop care per Dr. Carballo. Discussed with Derian - he will order PT/OT consults. Monitor blood sugars; continue DM meds. Watch for fluid overload - he denies ever having CHF exacerbation in the past. 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 DC IVF as soon as he is taking in oral well. He is on digoxin but denies hx of an arrhythmia. Consult CM - he is interested in naming his as DPOA and writing a living will. Code: Full code but he does not want to be on ventilator for prolonged period. Also, he lives in a 5th wheel with his , and his is planning on having a knee replacement on 05/24/17, so we will have to determine best discharge plans. 05/20/17 Continue Vancomycin and Zosyn as per ID recommendations. Wound culture and pathology pending. Will decrease IVF to 40cc/hr to help keep vein open but not overload patient. Restart his home tramadol 100mg BID - takes to help pain in his hands -- NOT on home med list. Monitor sugars - currently showing good control. Continue CV medications. BP stable. No acute CV problems. Continue post operative care and support. Clinically recovering well. 05/21/17- Stable doing well. Continue on current treatment plan. Awaiting wound culture and sensitivity results. 05/22/17 10:50 05/22/17 D/W pt and at length. Continue antibiotics- pathology pending. Dr. 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 Change IV site out given pain with infusion. He may need Midline or PICC, but prefers to wait until intermodal owner operator truck driver plan of care is determined. Continue supportive medications for ischemic CM/HF. His CV doc is at [facility]. BG is well controlled, A1c 5.5. Not requiring medications for BG control. Continue remainder of supportive meds. Follow labs closely.
[2017-05-22] MEDS: NS 1,000 ML IV SCH (14:44)
[2017-05-22] MEDS: EPLERENONE 25 MG TABLET PO SCH (21:46)
[2017-05-22] MEDS: TAMSULOSIN 0.4 MG CAPSULE PO SCH (21:47)
[2017-05-22] MEDS: RAMIPRIL 5 MG CAPSULE PO SCH (21:59)
[2017-05-23] MEDS: PIPERACILLIN/TAZOBACTAM 3.375 GM in NS 100 ML IV SCH ×5 (03:16→22:00)
[2017-05-23] MEDS: OXYCODONE/APAP 7.5 MG/325 MG TABLET PO PRN (06:08)
[2017-05-23] MEDS: OMEPRAZOLE 20 MG CAPSULE PO SCH (06:09)
[2017-05-23] MEDS: BUSPIRONE 15 MG TABLET PO SCH ×2 (10:09→20:30)
[2017-05-23] MEDS: DIGOXIN 125 MCG TABLET PO SCH (10:09)
[2017-05-23] MEDS: ASPIRIN *EC* 81 MG TABLET PO SCH (10:10)
[2017-05-23] MEDS: FUROSEMIDE 40 MG TABLET PO SCH (10:10)
[2017-05-23] MEDS: GABAPENTIN 300 MG CAPSULE PO SCH ×3 (10:10→20:30)
[2017-05-23] MEDS: TRAMADOL 50 MG TABLET PO SCH ×2 (10:11→20:40)
[2017-05-23] MEDS: ALPRAZolam 0.5 MG TABLET PO SCH ×3 (10:11→20:41)
[2017-05-23] MEDS: SENNA + DOCUSATE TABLET PO SCH ×2 (10:11→20:40)
[2017-05-23] MEDS: POLYETHYL GLYCOL 3350 17gm PACKET PO SCH ×2 (10:14→20:40)
--- NOTE | 2017-05-23 10:18 | Orthopedic Progress Note ---
Date: Subjective/Severity of Illness: Andrés continues to feel well. No pain at the surgical site or in the leg. No drainage or concerns with the bandage. Afebrile and WBC trending downward. No path report back at this time. Orthopedic Objective PO Vital signs: Temperature 98.1 F 05/23/17 03:21 Pulse Rate 80 05/23/17 10:09 Respiratory Rate 16 05/23/17 03:21 Blood Pressure 102/65 05/23/17 03:21 Pulse Oximetry 94 05/23/17 03:21 Height and Weight: Height 6 ft 2 in Weight 179 lb 10.828 oz Body Mass Index 22.4 - Constitutional General Appearance: Present: alert, no acute distress - Respiratory Exam Present: non-labored - Cardiovascular Exam Capillary Refill: < 2-3 Seconds - Extremities Exam Extremities: Absent: calf tenderness - Surgical Site Incision: dressing intact, no drainage - Integumentary Exam Present: pink, warm, dry, other (Surgical wound looks good. No drainage or erythema to suggest infection. New dressing applied.) - Neurological Exam Present: no deficits - Psychiatric Exam Present: alert, normal affect - Labs Result Diagrams: 05/23/17 04:27 05/23/17 04:27 Abnormal lab results 05/23/17 05/23/17 Range/Units 04:27 04:27 RBC 4.37 L (4.50-5.90) M/MM3 Hgb 12.9 L (13.5-17.5) GM/DL Hct 38.3 L (41-53) % Eos % (Auto) 4.6 H (0-4) % Glucose 74 L (75-110) MG/DL C-Reactive Protein 14.0 H (0-9) MG/L H & H 05/19/17 05/20/17 05/21/17 Range/Units 13:05 04:16 04:32 Hgb 13.9 12.6 L 12.4 L (13.5-17.5) GM/DL Hct 40.8 L 37.3 L 36.4 L (41-53) % 05/23/17 Range/Units 04:27 Hgb 12.9 L (13.5-17.5) GM/DL Hct 38.3 L (41-53) % Orthopedic Assessment and Plan (1) Osteomyelitis of left foot Status: Acute Assessment and Plan: Elevate the leg to control swelling. Continue IV Vanco and Zosyn per Dr Parra recommendations. Await path report. - Anticoagulation Therapy Anticoagulation: Resume home anticoagulant (Aspirin 81mg daily.) Hospital Course Summary Disclaimer: The visit summary below is not to be considered part of the above Progress Note. Hospital Course: 05/19/17: Hospitalist consult Assessment Osteomyelitis left foot; s/p left 3rd, 4th, and 5th toes amputation on 05/19/[address] Carballo CAD, h/o [place] in 1999 Ischemic cardiomyopathy, EF 25% - used to be on Coumadin from [id number]. +AICD. 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 Give IV Ativan now - concern that he is having benzo withdrawal with diaphoresis and tremors. Postop care per Dr. Carballo. Discussed with Derian - he will order PT/OT consults. Monitor blood sugars; continue DM meds. Watch for fluid overload - he denies ever having CHF exacerbation in the past. 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 DC IVF as soon as he is taking in oral well. He is on digoxin but denies hx of an arrhythmia. Consult CM - he is interested in naming his as DPOA and writing a living will. Code: Full code but he does not want to be on ventilator for prolonged period. Also, he lives in a 5th wheel with his , and his is planning on having a knee replacement on 05/24/17, so we will have to determine best discharge plans. 05/20/17 Continue Vancomycin and Zosyn as per ID recommendations. Wound culture and pathology pending. Will decrease IVF to 40cc/hr to help keep vein open but not overload patient. Restart his home tramadol 100mg BID - takes to help pain in his hands -- NOT on home med list. Monitor sugars - currently showing good control. Continue CV medications. BP stable. No acute CV problems. Continue post operative care and support. Clinically recovering well. 05/21/17- Stable doing well. Continue on current treatment plan. Awaiting wound culture and sensitivity results. 05/22/17 10:50 05/22/17 D/W pt and at length. Continue antibiotics- pathology pending. Dr. Parra to help determine care home antibiotic need. Change IV site out given pain with infusion. He may need Midline or PICC, but prefers to wait until care home plan of care is determined. Continue supportive medications for ischemic CM/HF. His CV doc is at [facility]. BG is well controlled, A1c 5.5. Not requiring medications for BG control. Continue remainder of supportive meds. Follow labs closely.
--- NOTE | 2017-05-23 11:26 | Progress Note ---
<Ely Hendrix - Last Filed: 05/23/17 11:21> Subjective: Mr. Schofield is seen today in follow up for his left foot osteomyelitis. He is seen while resting in bed, watching TV and reports that he is doing well. He reports that he continues to have pain and burning at his IV site on his left wrist with antibiotic infusions but after extensive discussion with Derian and nursing, it was decided to continue using the site as it was not infiltrated and there is hope that the results of his pathology will allow for him to have the IV removed. He remains on the antibiotic regimen recommended by Dr. Parra including Zosyn and Vancomycin. The pathology report is expected to be complete some time this week and then it will be determined if the IV can be removed or if a PICC line should be placed. He denies any other complaints or concerns including no chest pain, shortness of breath, abdominal pain, nausea, vomiting or dysuria. Review of his prior medical records and nursing notes indicates that he has not had a bowel movement in several days, despite medications for bowel motivation. He is requiring narcotic pain medication for his pain at the IV site prior to infusions. His appetite is good and overall, he is feeling better. Labs from today were relatively unremarkable with leukocytosis resolved (WBC 6.7), improving anemia with hemoglobin at 12.9 and platelets 149. BMP was stable with sodium at 144, potassium 4.4, BUN 14, SCr 1.1 and blood sugars stable with fasting sugar at 74. CRP was slightly elevated at 14 which is greatly improved from prior CRP in April at which time it was 40. Vital signs are stable and he remains afebrile. Objective Vital signs: Temperature 98.1 F 05/23/17 03:21 Pulse Rate 80 05/23/17 10:09 Respiratory Rate 16 05/23/17 03:21 Blood Pressure 102/65 05/23/17 03:21 Pulse Oximetry 94 05/23/17 03:21 Rhythm: Normal Sinus Rhythm (PACED) Height/Weight/BMI: Height 6 ft 2 in Weight 176 lb 9.444 oz Body Mass Index 22.4 - Constitutional Present: no acute distress, well nourished, well developed, cooperative - Routine HEENT Exam Head: Present: normocephalic, atraumatic Eye: Present: PERRL. Absent: conjunctival icterus ENT: Present: mucous membranes moist - Routine Respiratory Exam Present: CTA bilaterally. Absent: rhonchi, stridor, wheezes, crackles - Routine Cardiovascular Exam Present: RRR, S1, S2 - Routine Abdominal Exam Present: soft, normoactive bowel sounds, non tender, distended - Routine Extremities Exam Present: no edema, pulses intact - Routine Back/Spine/Pelvis Exam Back/Spine: Present: full ROM - Routine Musculoskeletal Exam Musculoskeletal: Present: moving extremities well - Routine Skin Exam Present: intact, dry, warm. Absent: jaundice Comments: afebrile; left foot with new dressing intact which is clean and dry-changed today prior to exam. - Routine Neurological Exam Present: alert, oriented X3, moving all extremities, normal speech - Routine Lymphatic Exam Lymphatic: Absent: lymphedema - Routine Psychiatric Exam Present: normal affect, cooperative Results - Labs CBC & Chem 7: 05/23/17 04:27 05/23/17 04:27 Microbiology Results: Microbiology 05/19/17 15:30 Amputation Site Gram Stain - Final 05/19/17 15:30 Amputation Site Surgical Culture - Final Coag negative Staphylococcus Corynebacterium species Assessment and Plan (1) Osteomyelitis of left foot Current visit: Yes Status: Acute DVT Prophylaxis: SCD's GI Prophylaxis: other (Priolsec) Resuscitation Status: Full Code Assessment and Plan: 05/23/17: [place]. Assessment Osteomyelitis left foot - 05/19/17: amputation of left 3rd, 4th, and 5th toes by Dr. Carballo CAD, h/o [place] in 1999 Ischemic cardiomyopathy, EF 25% - used to be on Coumadin from 1482-1079. +AICD. HTN DM II with peripheral neuropathy to b/l fingers and feet - last A1c 5.5% BPH Anxiety GERD H/o Stage IV Hepatitis C - treated in 2014 ([facility]) Constipation Plan Overall, Mr. Schofield is feeling good. He continues to have pain at the IV site in his left wrist with antibiotic infusions. Continue pain medication prior to infusion for pain control and monitor site closely for signs of infection, warmth, erythema and/or infiltration. Patient would like to hold off on moving site until pathology report is back if possible to determine if IV can be removed or if a PICC or other line should be placed for continued therapy. Anticipate pathology report to be available this week. Continue Vancomycin and Zosyn as recommended by Dr Parra. Wound pathology, cultures and sensitivity pending. Blood sugars have been well controlled with AM fasting sugar at 74. Will discontinue BGMs at this time per Dr. Wells. Continue Percocet and Ultram as needed for pain control. Continue bowel motivation as no BM in several days. Senna plus and MiraLAX scheduled daily as well as PRN milk of magnesia and Dulcolax for chronic constipation. Will also provide mag citrate and encourage increased fiber and prune juice. Monitor closely for signs of obstruction. Morning labs reviewed and stable. Hemoglobin trending up at 12.9. CRP slightly elevated at 14, significantly improved from prior CRP in April at 40. Will recheck labs in AM to monitor blood counts, electrolytes and renal function. - Time spent with patient 25 - 35 minutes Sepsis Assessment - Evaluation Sepsis screening result: No Definite Risk Hospital Course Summary Disclaimer: The visit summary below is not to be considered part of the above Progress Note. Hospital Course: 05/19/17: Hospitalist consult Assessment Osteomyelitis left foot; s/p left 3rd, 4th, and 5th toes amputation on 05/19/[address] aCrballo CAD, h/o [place] in 1999 Ischemic cardiomyopathy, EF 25% - used to be on Coumadin from 2687-8555. +AICD. 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 Give IV Ativan now - concern that he is having benzo withdrawal with diaphoresis and tremors. Postop care per Dr. Carballo. Discussed with Derian - he will order PT/OT consults. Monitor blood sugars; continue DM meds. Watch for fluid overload - he denies ever having CHF exacerbation in the past. 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 DC IVF as soon as he is taking in oral well. He is on digoxin but denies hx of an arrhythmia. Consult CM - he is interested in naming his as DPOA and writing a living will. Code: Full code but he does not want to be on ventilator for prolonged period. Also, he lives in a 5th wheel with his , and his is planning on having a knee replacement on 05/24/17, so we will have to determine best discharge plans. 05/20/17 Continue Vancomycin and Zosyn as per ID recommendations. Wound culture and pathology pending. Will decrease IVF to 40cc/hr to help keep vein open but not overload patient. Restart his home tramadol 100mg BID - takes to help pain in his hands -- NOT on home med list. Monitor sugars - currently showing good control. Continue CV medications. BP stable. No acute CV problems. Continue post operative care and support. Clinically recovering well. 05/21/17- Stable doing well. Continue on current treatment plan. Awaiting wound culture and sensitivity results. 05/22/17 10:50 05/22/17 D/W pt and at length. Continue antibiotics- pathology pending. Dr. Parra to help determine [facility] antibiotic need. Change IV site out given pain with infusion. 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 Continue supportive medications for ischemic CM/HF. His CV doc is at [facility]. BG is well controlled, A1c 5.5. Not requiring medications for BG control. Continue remainder of supportive meds. Follow labs closely. 05/23/17 Overall, Mr. Schofield is feeling good. He continues to have pain at the IV site in his left wrist with antibiotic infusions. Continue pain medication prior to infusion for pain control and monitor site closely for signs of infection, warmth, erythema and/or infiltration. Patient would like to hold off on moving site until pathology report is back if possible to determine if IV can be removed or if a PICC or other line should be placed for continued therapy. Anticipate pathology report to be available this week. Continue Vancomycin and Zosyn as recommended by Dr Parra. Wound pathology, cultures and sensitivity pending. Blood sugars have been well controlled with AM fasting sugar at 74. Will discontinue BGMs at this time per Dr. Wells. Continue Percocet and Ultram as needed for pain control. Continue bowel motivation as no BM in several days. Senna plus and MiraLAX scheduled daily as well as PRN milk of magnesia and Dulcolax for chronic constipation. Will also provide mag citrate and encourage increased fiber and prune juice. Monitor closely for signs of obstruction. Morning labs reviewed and stable. Hemoglobin trending up at 12.9. CRP slightly elevated at 14, significantly improved from prior CRP in April at 40. Will recheck labs in AM to monitor blood counts, electrolytes and renal function. <RussellTejal allred - Last Filed: 05/23/17 14:36> Objective Vital signs: Temperature 98.1 F 05/23/17 11:50 Pulse Rate 76 05/23/17 11:50 Respiratory Rate 18 05/23/17 11:50 Blood Pressure 110/67 05/23/17 11:50 Pulse Oximetry 94 05/23/17 03:21 Height/Weight/BMI: Height 1.88 m Weight 80.1 kg Body Mass Index 22.4 Results - Labs CBC & Chem 7: 05/23/17 04:27 05/23/17 04:27 Microbiology Results: Assessment and Plan (1) Osteomyelitis of left foot Current visit: Yes Status: Acute Assessment and Plan: I have independently evaluated and examined this patient. I reviewed the chart, the patient's history, and the BLOCK BREAKER OPERATOR/PA's documented findings as above. We discussed and formulated the assessment and plan as above with additions as below: Patient reports he's been constipated for several days (although several stools reported yesterday); nursing gave him warm prune juice in addition to other medications today. No other concerns. Ambulated in the halls 3 yesterday without foot pain. Mr. Roca is alert and in no distress. Abdomen is soft and nontender, bowel sounds are active No lower extremity edema, left foot wrapped. Labs noted, pathology pending. Increase MiraLAX to twice a day-nursing report hard stool. Hospital Course Summary Disclaimer: The visit summary below is not to be considered part of the above Progress Note.
[2017-05-23] MEDS ORDERED: MAGNESIUM CITRATE 296ml PO ONE (11:38)
[2017-05-23] MEDS: NS 1,000 ML IV SCH ×2 (16:02→22:58)
[2017-05-23] MEDS: RAMIPRIL 5 MG CAPSULE PO SCH (20:30)
[2017-05-23] MEDS: TAMSULOSIN 0.4 MG CAPSULE PO SCH (20:30)
[2017-05-23] MEDS: EPLERENONE 25 MG TABLET PO SCH (20:30)
[2017-05-24] MEDS: PIPERACILLIN/TAZOBACTAM 3.375 GM in NS 100 ML IV SCH ×2 (03:02→09:36)
[2017-05-24] MEDS: OMEPRAZOLE 20 MG CAPSULE PO SCH (05:55)
[2017-05-24 07:37] VITALS: TEMP 98.1
--- NOTE | 2017-05-24 07:57 | Orthopedic Progress Note ---
Date: Subjective/Severity of Illness: Andrés has no complaints. His dressing is saturated on the plantar aspect and will be changed by nursing soon. No path report is available yet. His IV was changed to his right arm and with that his pain is minimal to none. Orthopedic Objective PO Vital signs: Temperature 98.1 F 05/24/17 07:36 Pulse Rate 76 05/24/17 07:36 Respiratory Rate 16 05/24/17 07:36 Blood Pressure 125/79 05/24/17 07:36 Pulse Oximetry 99 05/24/17 07:36 Height and Weight: Height 6 ft 2 in Weight 174 lb 6.17 oz Body Mass Index 22.4 - Constitutional General Appearance: Present: alert, no acute distress - Respiratory Exam Present: non-labored - Extremities Exam Extremities: Absent: calf tenderness - Surgical Site Incision: dressing intact, no drainage - Integumentary Exam Present: pink, warm, dry, other (Surgical wound looks good. No drainage or erythema to suggest infection. New dressing applied.) - Lymphatic Lymphatic: Absent: lymphedema - Neurological Exam Present: no deficits - Psychiatric Exam Present: alert, normal affect - Labs Result Diagrams: 05/24/17 05:13 05/24/17 05:13 Abnormal lab results 05/24/17 05/24/17 Range/Units 05:13 05:13 RBC 4.26 L (4.50-5.90) M/MM3 Hgb 12.5 L (13.5-17.5) GM/DL Hct 37.2 L (41-53) % Eos % (Auto) 4.6 H (0-4) % Vancomycin Trough 22.37 H* (15-20) UG/ML H & H 05/19/17 05/20/17 05/21/17 Range/Units 13:05 04:16 04:32 Hgb 13.9 12.6 L 12.4 L (13.5-17.5) GM/DL Hct 40.8 L 37.3 L 36.4 L (41-53) % 05/23/17 05/24/17 Range/Units 04:27 05:13 Hgb 12.9 L 12.5 L (13.5-17.5) GM/DL Hct 38.3 L 37.2 L (41-53) % Orthopedic Assessment and Plan (1) Osteomyelitis of left foot Status: Acute Assessment and Plan: Elevate the leg to control swelling. Continue IV Vanco and Zosyn per Dr Parra recommendations. Await path report. - Anticoagulation Therapy Anticoagulation: Resume home anticoagulant (Aspirin 81mg daily.) Hospital Course Summary Disclaimer: The visit summary below is not to be considered part of the above Progress Note. Hospital Course: 05/19/17: Hospitalist consult Assessment Osteomyelitis left foot; s/p left 3rd, 4th, and 5th toes amputation on 05/19/[address] Carballo CAD, h/o [place] in 1999 Ischemic cardiomyopathy, EF 25% - used to be on Coumadin from [id number]. +AICD. 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 Give IV Ativan now - concern that he is having benzo withdrawal with diaphoresis and tremors. Postop care per Dr. Carballo. Discussed with Derian - he will order PT/OT consults. Monitor blood sugars; continue DM meds. Watch for fluid overload - he denies ever having CHF exacerbation in the past. 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 DC IVF as soon as he is taking in oral well. He is on digoxin but denies hx of an arrhythmia. Consult CM - he is interested in naming his as DPOA and writing a living will. Code: Full code but he does not want to be on ventilator for prolonged period. Also, he lives in a 5th wheel with his , and his is planning on having a knee replacement on 05/24/17, so we will have to determine best discharge plans. 05/20/17 Continue Vancomycin and Zosyn as per ID recommendations. Wound culture and pathology pending. Will decrease IVF to 40cc/hr to help keep vein open but not overload patient. Restart his home tramadol 100mg BID - takes to help pain in his hands -- NOT on home med list. Monitor sugars - currently showing good control. Continue CV medications. BP stable. No acute CV problems. Continue post operative care and support. Clinically recovering well. 05/21/17- Stable doing well. Continue on current treatment plan. Awaiting wound culture and sensitivity results. 05/22/17 10:50 05/22/17 D/W pt and at length. Continue antibiotics- pathology pending. Dr. Parra to help determine senior care antibiotic need. Change IV site out given pain with infusion. He may need Midline or PICC, but prefers to wait until senior care plan of care is determined. Continue supportive medications for ischemic CM/HF. His CV doc is at [facility]. BG is well controlled, A1c 5.5. Not requiring medications for BG control. Continue remainder of supportive meds. Follow labs closely. 05/23/17 Overall, Mr. Schofield is feeling good. He continues to have pain at the IV site in his left wrist with antibiotic infusions. Continue pain medication prior to infusion for pain control and monitor site closely for signs of infection, warmth, erythema and/or infiltration. Patient would like to hold off on moving site until pathology report is back if possible to determine if IV can be removed or if a PICC or other line should be placed for continued therapy. Anticipate pathology report to be available this week. Continue Vancomycin and Zosyn as recommended by Dr Parra. Wound pathology, cultures and sensitivity pending. Blood sugars have been well controlled with AM fasting sugar at 74. Will discontinue BGMs at this time per Dr. Wells. Continue Percocet and Ultram as needed for pain control. Continue bowel motivation as no BM in several days. Senna plus and MiraLAX scheduled daily as well as PRN milk of magnesia and Dulcolax for chronic constipation. Will also provide mag citrate and encourage increased fiber and prune juice. Monitor closely for signs of obstruction. Morning labs reviewed and stable. Hemoglobin trending up at 12.9. CRP slightly elevated at 14, significantly improved from prior CRP in April at 40. Will recheck labs in AM to monitor blood counts, electrolytes and renal function.
[2017-05-24] MEDS: FUROSEMIDE 40 MG TABLET PO SCH (09:34)
[2017-05-24] MEDS: DIGOXIN 125 MCG TABLET PO SCH (09:34)
[2017-05-24] MEDS: ASPIRIN *EC* 81 MG TABLET PO SCH (09:35)
[2017-05-24] MEDS: TRAMADOL 50 MG TABLET PO SCH (09:35)
[2017-05-24] MEDS: SENNA + DOCUSATE TABLET PO SCH (09:35)
[2017-05-24] MEDS: GABAPENTIN 300 MG CAPSULE PO SCH (09:36)
[2017-05-24] MEDS: BUSPIRONE 15 MG TABLET PO SCH (09:36)
[2017-05-24] MEDS: ALPRAZolam 0.5 MG TABLET PO SCH (09:40)
[2017-05-24] MEDS: POLYETHYL GLYCOL 3350 17gm PACKET PO SCH (09:51)
--- NOTE | 2017-05-24 11:45 | Pharmacy Consult-Antibiotics ---
Pharmacy Consult-Vancomycin - Laboratory Information WBC 7.1 T/MM3 (4.5-11.0) 05/24/17 05:13 BUN 18.0 MG/DL (9-20) 05/24/17 05:13 Creatinine 1.0 MG/DL (0.8-1.5) 05/24/17 05:13 Vancomycin Trough 22.37 UG/ML (15-20) H* 05/24/17 05:13 - Consult Information VANCOMYCIN CONSULT: Vancomycin Trough = 22.37 mcg/ml. Today's SCr = 1.0 mg/dl. Will give Vancomycin 1,250 mg IV q12hrs. Will continue to monitor and make adjustments accordingly. Thank you.
[2017-05-24 11:57] VITALS: BP 112/69; PULSE 77; RESP 14; O2SAT 98
--- NOTE | 2017-05-24 13:11 | Discharge Summary ---
Orthopedic Discharge Info Date of admission: 05/19/17 18:13 Primary care physician: Zaire Ervin MD Attending Physician: Jaron Carballo MD Consults: 05/19/17 16:49 Pharmacy Consult [CONS] Routine Pharmacy Consult: Vancomycin Physician Consult [CONS] Routine Consulting Provider: [place] Matthew Reason For Exam: Foot infection with multiple medical issues. Ordering Provider has Notified Flame Cutting Machine Operator: No Wound Vein Clinic Consult [CONS] Routine Reason for consultation: Management of left foot wound. 05/19/17 18:58 Case Management Consult [CONS] Routine Reason For Exam: please give Caring conversations info (living will - Discharge Diagnosis (1) Osteomyelitis of left foot Status: Acute - Procedures Procedures: left 3, 4, 5th toe amputation - Laboratory Result Diagrams: 05/24/17 05:13 05/24/17 05:13 Laboratory: Abnormal lab results 05/24/17 05/24/17 Range/Units 05:13 05:13 RBC 4.26 L (4.50-5.90) M/MM3 Hgb 12.5 L (13.5-17.5) GM/DL Hct 37.2 L (41-53) % Eos % (Auto) 4.6 H (0-4) % Vancomycin Trough 22.37 H* (15-20) UG/ML H & H 05/19/17 05/20/17 05/21/17 Range/Units 13:05 04:16 04:32 Hgb 13.9 12.6 L 12.4 L (13.5-17.5) GM/DL Hct 40.8 L 37.3 L 36.4 L (41-53) % 05/23/17 05/24/17 Range/Units 04:27 05:13 Hgb 12.9 L 12.5 L (13.5-17.5) GM/DL Hct 38.3 L 37.2 L (41-53) % - Microbiology Microbiology 05/19/17 15:30 Amputation Site Gram Stain - Final 05/19/17 15:30 Amputation Site Surgical Culture - Final Coag negative Staphylococcus Corynebacterium species Orthopedic Discharge HPI - HPI Comments The patient was admitted for left 3, 4, 5th toe amputation after osteomyelitis was confirmed. Please see H&P for further specifics Orthopedic Hospital Course Hospital course: Mr. Schofield underwent left 3, 4, and 5th toe amputation by Dr. Carballo on 05/19/17. He was placed on Vanco and Zosyn post operatively until cultures were obtained. Cultures revealed Coag negative Staph and Corynebacterium. Path report showed clear Margins. Dr. Parra was consulted and recommended Augmentin. Follow up on an outpatient basis. 05/24/17 13:13 Discharge Plan - [facility] Rec/Dispo Leila Instructions: Toe Amputation (DC), [facility] Additional Instructions: Follow up with wound care in 1 week. Please call to make an appointment for . Prescriptions: New Oxycodone/APAP 7.5/325 [Percocet 7.5/325] 1 - 2 tab PO Q6H PRN #60 tablet PRN Reason: Pain Amoxicillin/Potassium Clav [Augmentin 875-125 Tablet] 1 each PO Q12H #28 tab Continue ALPRAZolam [Alprazolam] 0.5 mg PO TID #0 Furosemide 40 mg PO DAILY #0 Ramipril 5 mg PO HS #0 Buspirone HCl 15 mg PO BID #0 Omeprazole 20 mg PO DAILY #0 Aspirin [Aspir 81] 81 mg PO DAILY #0 tab Eplerenone 25 mg PO HS #0 Tamsulosin HCl 0.4 mg PO HS #0 Digoxin 125 mcg PO DAILY Cholecalciferol (Vitamin D3) [Vitamin D3] 1 cap PO DAILY levoFLOXacin [Levofloxacin] 750 mg PO DAILY Potassium Chloride 10 meq PO HS #0 Nitroglycerin 0.4 mg SL Q5M PRN #0 tab PRN Reason: CHEST TIGHTNESS Tramadol HCl 100 mg PO BID #0 Gabapentin 300 mg PO TID Oxycodone HCl/Acetaminophen [Percocet 5-325 mg Tablet] 2 tab PO TID PRN PRN Reason: Pain - Disposition 01 Discharged Home, Self-Care
--- NOTE | 2017-05-24 14:09 | Orthopedic Progress Note ---
Date: Subjective/Severity of Illness: Andrés has no complaints. His dressing is saturated on the plantar aspect and will be changed by nursing soon. No path report is available yet. His IV was changed to his right arm and with that his pain is minimal to none. 05/24/17 14:05 Path report is back indicating clear surgical margins. Dr. Wells has spoken with Jorge Luis JAMES as well as Dr. Parra. Dr. Parra recommends Augmentin 875/ [address] Wells recommended 2 week course of Augmentin with re evaluation of treatment length by Dr. Parra/ Kait at follow up in 1 week. Follow up at the wound care center was made for 1 week. Jorge Luis Johansen spoke with Dr. Carballo's office staff who confirmed Dr. Carballo is able to see the patient then. Orthopedic Objective PO Vital signs: Temperature 98.1 F 05/24/17 11:00 Pulse Rate 77 05/24/17 11:00 Respiratory Rate 14 05/24/17 11:00 Blood Pressure 112/69 05/24/17 11:00 Pulse Oximetry 98 05/24/17 11:00 Height and Weight: Height 6 ft 2 in Weight 174 lb 6.17 oz Body Mass Index 22.4 - Constitutional General Appearance: Present: alert, no acute distress - Respiratory Exam Present: non-labored - Extremities Exam Extremities: Absent: calf tenderness - Surgical Site Incision: dressing intact, no drainage - Integumentary Exam Present: pink, warm, dry, other (Surgical wound looks good. No drainage or erythema to suggest infection. New dressing applied.) - Lymphatic Lymphatic: Absent: lymphedema - Neurological Exam Present: no deficits - Psychiatric Exam Present: alert, normal affect - Labs Result Diagrams: 05/24/17 05:13 05/24/17 05:13 Abnormal lab results 05/24/17 05/24/17 Range/Units 05:13 05:13 RBC 4.26 L (4.50-5.90) M/MM3 Hgb 12.5 L (13.5-17.5) GM/DL Hct 37.2 L (41-53) % Eos % (Auto) 4.6 H (0-4) % Vancomycin Trough 22.37 H* (15-20) UG/ML H & H 05/19/17 05/20/1717 Range/Units 13:05 04:16 04:32 Hgb 13.9 12.6 L 12.4 L (13.5-17.5) GM/DL Hct 40.8 L 37.3 L 36.4 L (41-53) % 05/23/17 05/24/17 Range/Units 04:27 05:13 Hgb 12.9 L 12.5 L (13.5-17.5) GM/DL Hct 38.3 L 37.2 L (41-53) % Orthopedic Assessment and Plan (1) Osteomyelitis of left foot Status: Acute Assessment and Plan: Elevate the leg to control swelling. Continue IV Vanco and Zosyn per Dr Parra recommendations. Await path report. Okay to discharge as per medical team. Dr. Parra recommends Augmentin. Path report shows no osteomyelitis in surgical margins. Follow up in wound care clinic. - Anticoagulation Therapy Anticoagulation: Resume home anticoagulant (Aspirin 81mg daily.) Hospital Course Summary Disclaimer: The visit summary below is not to be considered part of the above Progress Note. Hospital Course: 05/19/17: Hospitalist consult Assessment Osteomyelitis left foot; s/p left 3rd, 4th, and 5th toes amputation on 05/19/[address] Carballo CAD, h/o [place] in 1999 Ischemic cardiomyopathy, EF 25% - used to be on Coumadin from 2600-5371. +AICD. 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 Give IV Ativan now - concern that he is having benzo withdrawal with diaphoresis and tremors. Postop care per Dr. Carballo. Discussed with Derian - he will order PT/OT consults. Monitor blood sugars; continue DM meds. Watch for fluid overload - he denies ever having CHF exacerbation in the past. 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 DC IVF as soon as he is taking in oral well. He is on digoxin but denies hx of an arrhythmia. Consult CM - he is interested in naming his as DPOA and writing a living will. Code: Full code but he does not want to be on ventilator for prolonged period. Also, he lives in a 5th wheel with his , and his is planning on having a knee replacement on 05/24/17, so we will have to determine best discharge plans. 05/20/17 Continue Vancomycin and Zosyn as per ID recommendations. Wound culture and pathology pending. Will decrease IVF to 40cc/hr to help keep vein open but not overload patient. Restart his home tramadol 100mg BID - takes to help pain in his hands -- NOT on home med list. Monitor sugars - currently showing good control. Continue CV medications. BP stable. No acute CV problems. Continue post operative care and support. Clinically recovering well. 05/21/17- Stable doing well. Continue on current treatment plan. Awaiting wound culture and sensitivity results. 05/22/17 10:50 05/22/17 D/W pt and at length. Continue antibiotics- pathology pending. Dr. Parra to help determine intermediate antibiotic need. Change IV site out given pain with infusion. 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 Continue supportive medications for ischemic CM/HF. His CV doc is at [facility]. BG is well controlled, A1c 5.5. Not requiring medications for BG control. Continue remainder of supportive meds. Follow labs closely. 05/23/17 Overall, Mr. Schofield is feeling good. He continues to have pain at the IV site in his left wrist with antibiotic infusions. Continue pain medication prior to infusion for pain control and monitor site closely for signs of infection, warmth, erythema and/or infiltration. Patient would like to hold off on moving site until pathology report is back if possible to determine if IV can be removed or if a PICC or other line should be placed for continued therapy. Anticipate pathology report to be available this week. Continue Vancomycin and Zosyn as recommended by Dr Parra. Wound pathology, cultures and sensitivity pending. Blood sugars have been well controlled with AM fasting sugar at 74. Will discontinue BGMs at this time per Dr. Wells. Continue Percocet and Ultram as needed for pain control. Continue bowel motivation as no BM in several days. Senna plus and MiraLAX scheduled daily as well as PRN milk of magnesia and Dulcolax for chronic constipation. Will also provide mag citrate and encourage increased fiber and prune juice. Monitor closely for signs of obstruction. Morning labs reviewed and stable. Hemoglobin trending up at 12.9. CRP slightly elevated at 14, significantly improved from prior CRP in April at 40. Will recheck labs in AM to monitor blood counts, electrolytes and renal function.
--- NOTE | 2017-05-24 14:11 | Progress Note ---
Subjective: Mr. Schofield is doing well this morning. He denied dyspnea, lightheadedness, palpitations, or nausea. He had a couple bowel movements yesterday and he has been ambulating and denies pain. Objective Vital signs: Temperature 98.1 F 05/24/17 11:00 Pulse Rate 77 05/24/17 11:00 Respiratory Rate 14 05/24/17 11:00 Blood Pressure 112/69 05/24/17 11:00 Pulse Oximetry 98 05/24/17 11:00 NAD, alert Conjunctiva clear Respirations nonlabored, good airflow, breath sounds clear Regular rhythm, S1 and S2 Abdomen soft, nontender, bowel sounds present SCDs on, dressing present right foot Oriented 3 Height/Weight/BMI: Height 1.88 m Weight 79.1 kg Body Mass Index 22.4 Results - Labs CBC & Chem 7: 05/24/17 05:13 05/24/17 05:13 Microbiology Results: Microbiology 05/19/17 15:30 Amputation Site Gram Stain - Final 05/19/17 15:30 Amputation Site Surgical Culture - Final Coag negative Staphylococcus Corynebacterium species Assessment and Plan (1) Osteomyelitis of left foot Current visit: Yes Status: Acute Resuscitation Status: Full Code Assessment and Plan: Assessment Osteomyelitis left foot - 05/19/17: amputation of left 3rd, 4th, and 5th toes by Dr. Carballo CAD, h/o [place] in 1999 Ischemic cardiomyopathy, EF 25% - used to be on Coumadin from 1945-6925. +AICD. 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 Discussed with orthopedics and with Dr. Parra. Outpatient cultures reviewed-discontinue IV antibiotics and convert to Augmentin for approximately 2 weeks pending follow-up in the outpatient wound care center. Continue resume home medications for chronic medical problems. Follow-up with Dr. Ervin in a couple of weeks. Sepsis Assessment - Evaluation Sepsis screening result: No Definite Risk Hospital Course Summary Disclaimer: The visit summary below is not to be considered part of the above Progress Note. Hospital Course: 05/19/17: Hospitalist consult Assessment Osteomyelitis left foot; s/p left 3rd, 4th, and 5th toes amputation on 05/19/[address] Carballo CAD, h/o [place] in 1999 Ischemic cardiomyopathy, EF 25% - used to be on Coumadin from 0907-9250. +AICD. 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 Give IV Ativan now - concern that he is having benzo withdrawal with diaphoresis and tremors. Postop care per Dr. Carballo. Discussed with Derian - he will order PT/OT consults. Monitor blood sugars; continue DM meds. Watch for fluid overload - he denies ever having CHF exacerbation in the past. 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 DC IVF as soon as he is taking in oral well. He is on digoxin but denies hx of an arrhythmia. Consult CM - he is interested in naming his as DPOA and writing a living will. Code: Full code but he does not want to be on ventilator for prolonged period. Also, he lives in a 5th wheel with his , and his is planning on having a knee replacement on 05/24/17, so we will have to determine best discharge plans. 05/20/17 Continue Vancomycin and Zosyn as per ID recommendations. Wound culture and pathology pending. Will decrease IVF to 40cc/hr to help keep vein open but not overload patient. Restart his home tramadol 100mg BID - takes to help pain in his hands -- NOT on home med list. Monitor sugars - currently showing good control. Continue CV medications. BP stable. No acute CV problems. Continue post operative care and support. Clinically recovering well. 05/21/17- Stable doing well. Continue on current treatment plan. Awaiting wound culture and sensitivity results. 05/22/17 10:50 05/22/17 D/W pt and at length. Continue antibiotics- pathology pending. Dr. Parra to help determine intermediate card tender antibiotic need. Change IV site out given pain with infusion. He may need Midline or PICC, but prefers to wait until intermediate card tender plan of care is determined. Continue supportive medications for ischemic CM/HF. His CV doc is at [facility]. BG is well controlled, A1c 5.5. Not requiring medications for BG control. Continue remainder of supportive meds. Follow labs closely. 05/23/17 Overall, Mr. Schofield is feeling good. He continues to have pain at the IV site in his left wrist with antibiotic infusions. Continue pain medication prior to infusion for pain control and monitor site closely for signs of infection, warmth, erythema and/or infiltration. Patient would like to hold off on moving site until pathology report is back if possible to determine if IV can be removed or if a PICC or other line should be placed for continued therapy. Anticipate pathology report to be available this week. Continue Vancomycin and Zosyn as recommended by Dr Parra. Wound pathology, cultures and sensitivity pending. Blood sugars have been well controlled with AM fasting sugar at 74. Will discontinue BGMs at this time per Dr. Wells. Continue Percocet and Ultram as needed for pain control. Continue bowel motivation as no BM in several days. Senna plus and MiraLAX scheduled daily as well as PRN milk of magnesia and Dulcolax for chronic constipation. Will also provide mag citrate and encourage increased fiber and prune juice. Monitor closely for signs of obstruction. Morning labs reviewed and stable. Hemoglobin trending up at 12.9. CRP slightly elevated at 14, significantly improved from prior CRP in April at 40. Will recheck labs in AM to monitor blood counts, electrolytes and renal function.
[2017-05-24] MEDS: NS 1,000 ML IV SCH (14:48)
--- NOTE | 2017-06-08 11:39 | Operative Note ---
DATE OF PROCEDURE 05/19/2017 PRE-PROCEDURE DIAGNOSIS Left foot osteomyelitis and diabetic foot ulcerations. SURGEON Jaron Carballo MD ANESTHESIA TIVA COMPLICATIONS None. DESCRIPTION OF PROCEDURE Mr. Schofield and his left foot were identified and marked in the preoperative holding area. He was brought back to the operating suite and placed supine on the operating table. He was placed under general anesthesia. His left lower extremity was prepped and draped in my normal sterile fashion. Time-out was performed. He has diabetic foot ulcerations to the fourth and fifth digits. MRI confirms osteomyelitis in these digits. He also has a plantar wound which is healing well to the forefoot. I néstor out my incision at the base of each toe and sharply performed the skin incision down to the bone, starting with the fifth toe. Sharp dissection was carried down the proximal phalanx to the MTP joint and the capsule was incised and the toes were removed one at a time. The heads of the metatarsals appeared to be in good condition without any signs of obvious necrosis. All three wounds were thoroughly irrigated before being closed with nylon in a simple interrupted fashion. The drapes were then removed and he was taken to the recovery room under the care of Anesthesia. He tolerated the procedure well. There were no complications. The toes were sent to pathology. LUCIA
== END 2017-05-24 15:30 | disposition home or self-care (01) | DRG 505 ==
LOC: SUR 12:23 → SRG 17:15
PROVIDERS: ADMIT Orthopaedic Surgery; ATTEND Orthopaedic Surgery